=== PATIENT | female | born 1990 | race Caucasian/White ===

== ENCOUNTER 2021-06-03 13:15 | Outpatient (REF) | payer MEDICAID, SELFPAY ==
[2021-06-03 13:48] LABS: COVID-19 Test Negative (Negative)
== END 2021-06-03 13:16 | disposition home or self-care (01) ==
LOC: HO.LAB 13:15
PROVIDERS: Internal Medicine; Visit Provider Physician Assistant
DX: Z20.822 Contact with and (suspected) exposure to COVID-19 (principal)
CPT/HCPCS: 36415; 87635; C9803